=== PATIENT | male | born 1955 | race African-American/Black ===

== ENCOUNTER 2020-08-20 15:38 | Inpatient (IN) | payer MEDICARE, OTHER ==
[~2020-08-20] VITALS: Ht 175.3 cm; Wt 119.3 kg
[2020-08-20] MEDS ORDERED: SODIUM CHLORIDE 0.9% 1,000 ML IV ONE ×4 (16:15→22:15)
[2020-08-20 16:29] LABS: HEMATOCRIT. 37.5 % (42.0-52.0); HEMOGLOBIN. 12.3 g/dL (14.0-18.0); MEAN CORPUSCULAR HEMOGLOBIN 28.1 pg (28.0-32.0); MEAN PLATELET VOLUME 7.7 fl (7.4-10.4); PLATELET 489 x1000/uL (130-400); RED BLOOD CELL COUNT 4.36 mill/uL (4.7-6.1); RED CELL DISTRIBUTION WIDTH 14.4 % (11.6-14.6)
[2020-08-20 16:35] LABS: CHLORIDE 96 mEq/L (98-107)
[2020-08-20 16:39] LABS: ETHANOL BLOOD < 10 mg/dL
[2020-08-20 16:52] LABS: PLATELET ESTIMATE INCREASED
[2020-08-20] MEDS ORDERED: LORAZEPAM 2MG/ML CPJ IV ONE ×5 (17:00→21:30)
[2020-08-20] MEDS ORDERED: LORAZEPAM 2MG/ML CPJ IV NR (17:30)
[2020-08-20 17:32] LABS: INR 1.1
[2020-08-20 17:55] LABS: CLARITY URINE CLEAR (CLEAR); COLOR URINE YELLOW (YELLOW); KETONES URINE 3+ (NEGATIVE); LEUKOCYTE ESTERASE URINE NEGATIVE (NEGATIVE); NITRITE URINE NEGATIVE (NEGATIVE); OCCULT BLOOD URINE 1+ (NEGATIVE); PROTEIN URINE TRACE (NEGATIVE); SPECIFIC GRAVITY URINE 1.023 (1.005-1.030)
[2020-08-20] MEDS ORDERED: PIPERACILLIN/TAZ 3.375G PREMIX 50 ML IV NR (18:00)
[2020-08-20] MEDS ORDERED: VANCOMYCIN 1 G PREMIX 200 ML IV NR (18:00)
[2020-08-20 18:11] LABS: *AMPHETAMINES SCREEN URINE NEGATIVE (NEGATIVE); *BARBITURATES SCREEN URINE NEGATIVE (NEGATIVE)
[2020-08-20 18:12] LABS: *BENZODIAZEPINES SCREEN URINE NEGATIVE (NEGATIVE); *COCAINE SCREEN URINE NEGATIVE (NEGATIVE); CANNABINOID URINE SCREEN NEGATIVE (NEGATIVE); METHADONE URINE SCREEN PRESUMTIVE POSITIVE (NEGATIVE); OPIATES URINE SCREEN NEGATIVE (NEGATIVE); PHENCYCLIDINE URINE SCREEN NEGATIVE (NEGATIVE)
[2020-08-20] MEDS ORDERED: IOHEXOL-300 100 ML BOTTLE ONE (22:21)
[2020-08-21] VITALS (12 sets, daily range): BP systolic 121–167; BP diastolic 53–99
[2020-08-21] MEDS ORDERED: CLONIDINE 0.1MG TABLET PO PRN (00:15)
[2020-08-21] MEDS ORDERED: HYDRALAZINE 20MG/ML VIAL IV PRN (00:30)
[2020-08-21] MEDS ORDERED: LABETALOL HCL 20MG/4ML CARPUJECT IV PRN (01:00)
[2020-08-21] MEDS ORDERED: LORAZEPAM 2MG/ML CPJ IV PRN (03:15)
[2020-08-21] MEDS ORDERED: ONDANSETRON HCL 4MG/2ML INJ IV PRN (03:30)
[2020-08-21] MEDS ORDERED: ACETAMINOPHEN 650MG/20.3ML UDC PO PRN (03:30)
[2020-08-21] MEDS ORDERED: DEXTROSE 50% WATER 50ML SYRINGE IV PRN (03:30)
[2020-08-21] MEDS ORDERED: VANCOMYCIN 1 G PREMIX 200 ML IV SCH (03:45)
[2020-08-21] MEDS: VANCOMYCIN 1 G PREMIX 200 ML IV SCH ×3 (06:23→22:36)
[2020-08-21] MEDS: BLOOD SUGAR DIAGNOSTIC STRIP TEST SCH ×4 (06:23→20:18)
[2020-08-21] MEDS: OMEPRAZOLE 20MG CAPSULE EXTENDED RELEASE PO SCH (06:50)
[2020-08-21] MEDS: PIPERACILLIN/TAZOBACTAM 3.375 G in DEXT 5% WATER 100 ML IV SCH ×3 (08:22→17:09)
[2020-08-21] MEDS: ASPIRIN 81MG TABLET PO SCH (08:23)
[2020-08-21] MEDS: METFORMIN HCL 500MG TABLET PO SCH ×2 (08:23→17:09)
[2020-08-21] MEDS: AMLODIPINE 10MG TABLET PO SCH (08:24)
[2020-08-21] MEDS: CLOPIDOGREL 75MG TABLET PO SCH (08:24)
[2020-08-21] MEDS: METOPROLOL TARTRATE 50MG TABLET PO SCH ×2 (08:24→20:19)
[2020-08-21] MEDS: LOSARTAN POTASSIUM 25 MG TABLET PO SCH (08:25)
[2020-08-21] MEDS: INSULIN LISPRO 100 UNITS/ML SUBCUT SCH ×4 (08:50→20:21)
[2020-08-21] MEDS: HALOPERIDOL LACTATE 5MG/ML VIAL IM PRN ×2 (09:30→18:15)
[2020-08-21 10:22] LABS: BG BASE EXCESS 2.8 mmol/L (-2.0-2.0); BG CARBOXYHEMOGLOBIN 0.2 % (0.5-1.5); BG DEOXYHEMOGLOBIN 7.4 % (0.0-5.0); BG FRACTION INSPIRED OXYGEN 21; BG HCO3 ACT 26.6 mmol/L (22.0-26.0); BG METHEMOGLOBIN 0.1 % (0.0-1.5); BG OXYGEN SATURATION 92.6 % (92.0-98.5); BG OXYHEMOGLOBIN 92.3 % (94.0-97.0); BG PCO2 38.3 mmHg (35.0-45.0); BG PO2 64.4 mmHg (75.0-100.0); BG SAMPLE SITE LEFT RADIAL; BG TOTAL HEMOGLOBIN 12.3 g/dL (12.0-18.0); BG VENT MODE ROOM AIR
[2020-08-21] MEDS: LORAZEPAM 2MG/ML CPJ IV PRN ×2 (13:54→20:51)
[2020-08-21] MEDS: SODIUM CHLORIDE 0.9% 1,000 ML IV SCH (13:55)
[2020-08-21] MEDS: MORPHINE SULFATE 2 MG/ML CPJ (NOT FOR IM USE) IV PRN ×2 (14:22→18:06)
[2020-08-21 14:59] LABS: AMYLASE 12 IU/L (25-115)
[2020-08-21] MEDS: ATORVASTATIN CALCIUM 40MG TABLET PO SCH (20:19)
[2020-08-22] VITALS (12 sets, daily range): BP systolic 118–153; BP diastolic 60–86
[2020-08-22] MEDS: PIPERACILLIN/TAZOBACTAM 3.375 G in DEXT 5% WATER 100 ML IV SCH ×4 (00:02→17:14)
[2020-08-22] MEDS: LORAZEPAM 2MG/ML CPJ IV PRN ×2 (02:06→06:42)
[2020-08-22] MEDS: SODIUM CHLORIDE 0.9% 1,000 ML IV SCH ×2 (02:07→17:14)
[2020-08-22 05:40] LABS: BASOPHILS % 0.2 % (0.0-2.0); HEMATOCRIT. 34.1 % (42.0-52.0); HEMOGLOBIN. 11.4 g/dL (14.0-18.0); LYMPHOCYTES % 11.4 % (20.0-50.0); MEAN CORPUSCULAR HEMOGLOBIN 28.4 pg (28.0-32.0); MEAN CORPUSCULAR VOLUME 85.1 fL (80.0-94.0); MEAN PLATELET VOLUME 8.1 fl (7.4-10.4); MONOCYTES % 7.1 % (2.0-8.0); NEUTROPHILS % 81.3 % (40.0-76.0); PLATELET 423 x1000/uL (130-400); RED BLOOD CELL COUNT 4.01 mill/uL (4.7-6.1); RED CELL DISTRIBUTION WIDTH 14.6 % (11.6-14.6)
[2020-08-22] MEDS: VANCOMYCIN 1 G PREMIX 200 ML IV SCH (05:46)
[2020-08-22 05:51] LABS: CHLORIDE 98 mEq/L (98-107)
[2020-08-22] MEDS: OMEPRAZOLE 20MG CAPSULE EXTENDED RELEASE PO SCH (06:15)
[2020-08-22] MEDS: BLOOD SUGAR DIAGNOSTIC STRIP TEST SCH ×4 (06:15→20:52)
[2020-08-22] MEDS: INSULIN LISPRO 100 UNITS/ML SUBCUT SCH ×4 (07:20→20:52)
[2020-08-22] MEDS: LOSARTAN POTASSIUM 25 MG TABLET PO SCH (08:19)
[2020-08-22] MEDS: CLOPIDOGREL 75MG TABLET PO SCH (08:19)
[2020-08-22] MEDS: METFORMIN HCL 500MG TABLET PO SCH ×2 (08:19→17:20)
[2020-08-22] MEDS: ASPIRIN 81MG TABLET PO SCH (08:19)
[2020-08-22] MEDS: ENOXAPARIN 30MG/0.3ML SYR SUBCUT SCH ×2 (08:20→20:19)
[2020-08-22] MEDS: METOPROLOL TARTRATE 50MG TABLET PO SCH ×2 (08:20→20:18)
[2020-08-22] MEDS: AMLODIPINE 10MG TABLET PO SCH (09:00)
[2020-08-22] MEDS ORDERED: INSULIN GLARGINE UD 100 UNITS/ML SYR SUBCUT NR (13:00)
[2020-08-22] MEDS ORDERED: VANCOMYCIN 1250MG in DEXTROSE 5% WATER 250ML IV SCH (18:00)
[2020-08-22] MEDS: MORPHINE SULFATE 2 MG/ML CPJ (NOT FOR IM USE) IV PRN (18:17)
[2020-08-22] MEDS ORDERED: METOPROLOL TARTRATE 50MG TABLET PO NR (19:00)
[2020-08-22] MEDS: ATORVASTATIN CALCIUM 40MG TABLET PO SCH (20:17)
[2020-08-22] MEDS ORDERED: INSULIN GLARGINE UD 100 UNITS/ML SYR SUBCUT SCH (22:00)
== END 2020-08-22 21:37 | disposition short-term general hospital (02) | DRG 871 ==
LOC: ER 15:38 → ENRESERV 22:58 → 3WST 08-21 01:09
PROVIDERS: ADMIT Internal Medicine; ATTEND Internal Medicine
DX: A41.9 Sepsis, unspecified organism (principal); G93.41 Metabolic encephalopathy; R65.21 Severe sepsis with septic shock; K85.90 Acute pancreatitis without necrosis or infection, unspecified; E44.0 Moderate protein-calorie malnutrition; E87.1 Hypo-osmolality and hyponatremia; E87.2 Acidosis; K86.1 Other chronic pancreatitis; E11.65 Type 2 diabetes mellitus with hyperglycemia; E66.01 Morbid (severe) obesity due to excess calories; E87.8 Other disorders of electrolyte and fluid balance, not elsewhere classified; I16.0 Hypertensive urgency; K76.0 Fatty (change of) liver, not elsewhere classified; E66.9 Obesity, unspecified; R16.0 Hepatomegaly, not elsewhere classified; R77.8 Other specified abnormalities of plasma proteins; Z20.828 Contact with and (suspected) exposure to other viral communicable diseases; Z68.38 Body mass index [BMI] 38.0-38.9, adult; Z79.899 Other long term (current) drug therapy
CPT/HCPCS: 36415; 36600; 71045; 71260; 74177; 80048; 80053; 80202; 80305; 80307; 80320; 80329; 81003; 82140; 82150; 82375; 82805; 82962; 83036; 83605; 83880; 84443; 84484; 85025; 86301; 87426; 99291; J1630; J1650; J1815; J2060; J2270; J2543; J3370; J7030; J7060; Q9967; A4315; G0480